=== PATIENT | male | born 1995 | race Caucasian/White ===

== ENCOUNTER → 2020-03-16 09:46 | Outpatient (CLI) | payer MEDICARE ==
[2020-03-16 10:44] LABS: BASOPHILS 0.5 % (0-2); HEMATOCRIT 46.9 % (42.0-54.0); HEMOGLOBIN 15.5 g/dL (13.5-17.5); IMMATURE GRANULOCYTES 0.2 % (0-5); LYMPHOCYTES 23.3 % (15-50); MCH 30.4 pg (26.0-34.0); MEAN PLATELET VOLUME 9.8 fL (7.4-10.4); MONOCYTES 10.6 % (2-11); NEUTROPHILS 64.4 % (40-80); PLATELET COUNT 198 10x3/uL (130-400); RDW 12.6 % (11.5-14.5); WBC 5.9 10x3/uL (4.8-10.8)
== END | disposition home or self-care (01) ==
LOC: D.LAB 09:46
PROVIDERS: ATTEND Psychiatry & Neurology Neurology
DX: R56.9 Unspecified convulsions (principal)

== ENCOUNTER → 2021-03-14 10:36 | Outpatient (CLI) | payer BC ==
[2021-03-14 11:05] LABS: BASOPHILS 0.9 % (0-2); EOSINOPHILS 0.7 % (0-7); HEMATOCRIT 45.4 % (42.0-54.0); HEMOGLOBIN 15.4 g/dL (13.5-17.5); LYMPHOCYTES 21.3 % (15-50); MCH 30.4 pg (26.0-34.0); MCV 89.4 fL (80.0-100.0); MEAN PLATELET VOLUME 7.9 fL (7.4-10.4); MONOCYTES 10.8 % (2-11); NEUTROPHILS 66.3 % (40-80); RBC 5.08 10x6/uL (4.20-6.10); RDW 13.6 % (11.5-14.5); WBC 7.3 10x3/uL (4.8-10.8)
[2021-03-14 11:35] LABS: PLATELET COUNT 263 10x3/uL (130-400)
== END | disposition home or self-care (01) ==
LOC: D.LAB 10:36
PROVIDERS: ATTEND Psychiatry & Neurology Neurology
DX: R56.9 Unspecified convulsions (principal)